=== PATIENT | male | born 1985 | race Caucasian/White ===

== ENCOUNTER 2019-01-19 13:05 | Day surgery (SDC) | payer BC, OTHER ==
[~2019-01-19] VITALS: Ht 198.1 cm; Wt 151.0 kg
[2019-01-19] MEDS ORDERED: BUPIVACAINE/PF 0.5% ONE (13:26)
[2019-01-19] MEDS ORDERED: LACTATED RINGERS 1,000 ML IV SCH ×2 (13:29→13:40)
[2019-01-19 13:43] VITALS: BP 149/100
[2019-01-19] MEDS ORDERED: FENTANYL PF 100 MCG/2ML ONE ×2 (13:57→14:15)
[2019-01-19] MEDS ORDERED: MIDAZOLAM 1 MG/ML, 2ML ONE (13:58)
[2019-01-19] MEDS ORDERED: DIAZEPAM 5 MG/ML, 2ML IVPush PRN (14:30)
[2019-01-19] MEDS ORDERED: FENTANYL PF 100 MCG/2ML IV PRN (14:30)
[2019-01-19] MEDS ORDERED: MEPERIDINE/PF 25MG/0.5ML IVPush PRN (14:30)
[2019-01-19] MEDS ORDERED: ACETAMINOPHEN 325 MG TABLET PO PRN (14:30)
[2019-01-19] MEDS ORDERED: LABETALOL 5MG/ML, 20ML IV PRN (14:30)
[2019-01-19] MEDS ORDERED: PROMETHAZINE 25 MG/ML, 1ML IV PRN (14:30)
[2019-01-19] MEDS ORDERED: ALBUTEROL SULFATE 2.5 MG/3 ML NPPB PRN (14:30)
[2019-01-19] MEDS ORDERED: OXYcodone 5 MG/5 ML ORAL.SOL UDC PO PRN (14:30)
[2019-01-19] MEDS ORDERED: KETOROLAC 30 MG/1 ML IV PRN (14:30)
[2019-01-19] MEDS ORDERED: hydrALAzine 20 MG/ML, 1ML IV PRN (14:30)
[2019-01-19] MEDS ORDERED: HYDROmorphone 2 MG/ML, 1ML IVPush PRN (14:30)
[2019-01-19] MEDS ORDERED: CEFAZOLIN 1,000 MG ONE (14:34)
[2019-01-19] MEDS ORDERED: DEXAMETHASONE 4 MG/ML, 1ML ONE (14:34)
[2019-01-19] MEDS ORDERED: ONDANSETRON 2MG/ML, 2ML ONE (14:34)
[2019-01-19] MEDS ORDERED: MEPERIDINE/PF 50 MG/ML ONE (14:34)
[2019-01-19] MEDS ORDERED: PROPOFOL 10 MG/ML, 20ML ONE (14:34)
[2019-01-19] MEDS ORDERED: PROMETHAZINE 25 MG/ML, 1ML ONE (14:47)
[2019-01-19] MEDS ORDERED: OXYcodone 5 MG/5 ML ORAL.SOL UDC ONE (15:01)
== END 2019-01-19 16:25 | disposition home or self-care (01) ==
LOC: OUT 13:05
PROVIDERS: ATTEND Orthopaedic Surgery
DX: T81.32XA Disruption of internal operation (surgical) wound, not elsewhere classified, initial encounter (principal); E66.9 Obesity, unspecified; Z72.89 Other problems related to lifestyle; Z79.891 Long term (current) use of opiate analgesic; Z87.891 Personal history of nicotine dependence; Z88.0 Allergy status to penicillin; Z88.2 Allergy status to sulfonamides; Z88.8 Allergy status to other drugs, medicaments and biological substances; Y83.8 Other surgical procedures as the cause of abnormal reaction of the patient, or of later complication, without mention of misadventure at the time of the procedure
CPT/HCPCS: 13160; 87070; 87075; 87077; 87186; 87205; J0690; J1100; J2175; J2250; J2405; J2550; J2704; J3010; J7120